=== PATIENT | male | born 1990 | race Caucasian/White ===

== ENCOUNTER 2016-11-19 18:31 | Emergency (ER) | payer OTHER ==
[~2016-11-19] VITALS: Ht 188 cm; Wt 90.0 kg
[2016-11-19 18:34] VITALS: BP 133/77; PULSE 78; RESP 18; O2SAT 99
--- NOTE | 2016-11-19 21:56 | ED.REPORT ---
HPI-Extremity Problem Upper Date of Service Nov 19, 2016 ED Provider: Abe Sweeney DO Pt is a 26 year old male who presents to the ED complaining of right shoulder pain onset 2 weeks. Pt c/o associated reduced range of motion, SOB, and dyspnea. The pt reported that he thinks he had a respiratory infection 2 weeks ago due to a cough. The following morning after the cough developed, the pt woke with right shoulder pain. He originally thought he had slept on it wrong, however he reports that the pain has gradually worsened since onset. Nursing Notes Stated Complaint: SEVERE PAIN IN RIGHT ARM Chief Complaint: Extremity Trauma Nursing Notes Reviewed: Yes Allergies: Coded Allergies: No Known Allergies (Verified Allergy, Unknown, 11/30/14) No Active Prescriptions or Reported Meds General Time Seen by MD: 21:11 Chief Complaint Shoulder injury right Hx Obtained From: Patient Arrived By: Walk-in Onset Occurred: More than a week ago... (2 weeks) Symptom Duration: Since onset Location: : Shoulder right Quality: Painful Severity: Current: Moderate Severity: Maximum: Moderate Recent Healthcare: Recent doctor visit Similar Sx Previous: No Past Medical History Past Medical History None reported - healthy Denies: Congestive heart failure, Diabetes mellitus, Hypertension Past Surgical History Denies Smoking History Current Every Day Smoker Social History Smokes marijuana Alcohol Use: "Social" Occupation Environmental Services Coordinator Ambulatory Status Independent Review of Systems Musculoskeletal: Reports: Extremity pain Complete sys rev & neg: except as marked. Respiratory: Reports: Dyspnea on exertion, Non-productive cough, Shortness of breath Physical Exam Initial Vital Signs Vital Signs (First) Date Time Temp Pulse Resp B/P Pulse Ox O2 Delivery O2 Flow Rate FiO2 11/19/16 18:34 36.7 78 18 133/77 99 Room Air Initial VS: Reviewed Head / Eyes: Atraumatic, Normocephalic, PERRL ENT: Mucous membranes moist, Conjunctiva normal, No scleral icterus Neck: Supple, Non-tender, Full range of motion Cardiovascular: Regular rate & rhythm, Heart sounds normal, Intact distal pulses Abdomen / GI: Soft, Non-tender Lower Extremities: Vascular intact, Neuro intact Skin: Warm, Dry, No cyanosis Neurologic: Alert, Oriented, Nonfocal Psychiatric: Mood/affect normal, Behavior normal General/Constitutional: Awake, Alert, Cooperative Respiratory / Chest: Atraumatic, Breath sounds = bilat Diminished breath sounds. Upper Extremity / MS: Neurologic intact, Vascular intact Extreme pain with range of motion of left arm. Supraspinatus tender insertion point. Pectoral region is tender. Interpretation & Diagnostics X-Ray Chest Interpretation Chest Xray Interpretation: Normal, no pneumothorax View: Portable, 1 view Interpretation / Wet Read by: Wet read ED physician Re-Eval/Medical Decision Med Decision/Clinical Course I recommended a d-dimer to rule out pulmonary emboli and upper extremity DVT. Antione initially agreed to this but evidently he left before this test was completed. He left before being discharged. Evidently he did tell his nurse that he will be back tomorrow for testing. Source of Hx: Old records Re-Evaluation/Progress : Time of Eval: 01:12 Re-Evaluation/Progress Note: Pt eloped without discharge instructions. Counseled Regarding: Diagnosis, Lab results, Need for follow-up, When/why to return to ED Discharge & Departure Shift Change Sign-Out Response to Therapy: Improved Impression: Primary Impression: Right arm pain Disposition: Home Discharge Condition All VS Reviewed: Yes Condition: Stable Referrals: Sherman Martell MD (PCP) [place] Attestation Portions of this note were transcribed by Yara Rodgers. I, Dr. Sweeney personally performed the history, physical exam and medical decision-making; I reviewed and confirmed the accuracy of the information in the transcribed note. Signed by: Jo Stephen, 11/19/16 and 23:50. copies to: Sherman Martell MD, Todd P DO Nov 19, 2016 21:56 Yara Camacho Nov 19, 2016 22:52
[2016-11-19] MEDS ORDERED: _oxyCODONE/APAP 5-325 mg Tablet PO PRN (22:05)
[2016-11-19] MEDS ORDERED: oxyCODONE-Acetamin 5-325 mg Tablet PO ONE (22:05)
[2016-11-19] MEDS ORDERED: HYDROcodone-APAP 5-325 mg Tablet PO ONE (22:40)
[2016-11-19] MEDS ORDERED: _HYDROcodone/APAP 5-325 mg Tablet PO PRN (22:40)
--- NOTE | 2016-11-20 08:58 | DRSVH ---
PROCEDURE: X-RAY CHEST, TWO VIEWS ([id number]) INDICATIONS: chest wall pain TECHNIQUE: 2 views of the chest were acquired. COMPARISON: [facility], CR, XR CHEST 1VW, 11/04/2016, 19:44. FINDINGS: Surgical changes and devices: None. Lungs and pleura: No pleural effusions or pneumothorax. Lungs are clear. Mediastinum: Mediastinal contours are normal. Heart size is normal. Bones and chest wall: No suspicious bony abnormalities. Soft tissues appear unremarkable. IMPRESSION: No acute cardiopulmonary disease. Dictated by: Andre Lara [facility] Interpreted: Nathalia Novak MD on 11/20/2016 at 8:56 Transcribed by: NUBIA on 11/20/2016 at 8:57 Approved by: Nathalia Novak M.D. on 11/20/2016 at 11:26
== END 2016-11-19 23:07 | disposition home or self-care (01) ==
LOC: SED 18:31
DX: M79.601 Pain in right arm (principal); F17.200 Nicotine dependence, unspecified, uncomplicated
CPT/HCPCS: 71020; 96372; 99284; J1885

== ENCOUNTER 2016-11-20 10:46 | Emergency (ER) | payer OTHER ==
[~2016-11-20] VITALS: Ht 188 cm; Wt 90.0 kg
[2016-11-20 11:18] VITALS: BP 125/79; PULSE 58; RESP 14; O2SAT 97
[2016-11-20 12:09] LABS: BASOPHILS % (AUTO) 0.2 % (0-3); EOSINOPHILS % (AUTO) 4.4 % (0-5); MONOCYTES % (AUTO) 10.6 % (4-12); Mean Corpuscular Hemoglobin 29.9 pg (27.0-35.0); Mean Corpuscular Volume 91.2 fL (81-100); NEUTROPHILS % (AUTO) 55.7 % (40-74); Platelet Count 268 bil/L (150-400)
--- NOTE | 2016-11-20 13:34 | ED.REPORT ---
HPI-Extremity Problem Upper Date of Service Nov 20, 2016 ED Provider: Doug Jensen PA-C Antione is otherwise healthy 26-year-old male presenting to emergency Department for right shoulder pain. Seen this department last night, departed prior to being tested for pulmonary embolus due to a family issue. Patient returns today to be tested for PE. Admits history of cough over the last 2 weeks, improving over the last 3 days. Also admits Shortness of breath, tingling in his right hand. denies fever, chills, trauma. Nursing Notes Stated Complaint: BLOOD CLOT TEST Chief Complaint: Respiratory Complaints Nursing Notes Reviewed: Yes Allergies: Coded Allergies: No Known Allergies (Verified Allergy, Unknown, 11/20/16) No Active Prescriptions or Reported Meds General Time Seen by MD: 13:16 Chief Complaint Shoulder injury right Past Medical History Past Medical History None reported - healthy Past Surgical History Denies Smoking History Current Every Day Smoker Social History Smokes marijuana Alcohol Use: "Social" Occupation Rn Intern Ambulatory Status Independent Review of Systems Review of Systems Note: Negative unless stated otherwise in history of present illness Physical Exam General: Well appearing, well developed, well nourished, no acute distress. Right shoulder: Normal to inspection, pain with range of motion. Tender over pectoral muscle. Right arm: Radial pulses 2+, neurovascularly intact. Adduction of thumb, pincher grasp with fifth finger intact, crosses his second and third fingers. Head: Atraumatic, normocephalic. Eyes: No scleral icterus or injection. No discharge. Vision grossly intact. ENT: Voice clear, hearing grossly intact. Respiratory: Regular rate and rhythm. Breath sounds present, clear to auscultation and equal bilaterally. No respiratory distress. No increased work of breathing, speaks in complete sentences. Cardiovascular: Regular rate and rhythm, without murmur, gallop or rub. No pedal edema. Skin: Warm and dry. Neurological: Grossly nonfocal. Psychological: Alert and oriented. Speech appropriate, linear and logical. Behavior appropriate. Initial Vital Signs Vital Signs (First) Date Time Temp Pulse Resp B/P Pulse Ox O2 Delivery O2 Flow Rate FiO2 11/20/16 11:18 36.2 58 14 125/79 97 Room Air Normal Interpretation & Diagnostics Lab Results Interpretation Result Diagram: 11/20/16 1159 11/20/16 1159 Test 6/21/17 11:59 White Blood Count 10.8th/mm3 (3.8-10.1) Red Blood Count 4.55mil/mm3 (4.40-5.80) Hemoglobin 13.6g/dL (13.8-17.2) Hematocrit 41.5% (41.0-50.0) Mean Corpuscular Volume 91.2fL (81-100) Mean Corpuscular Hemoglobin 29.9pg (27.0-35.0) Mean Corpuscular Hemoglobin Concent 32.8% (32.0-37.0) Red Cell Distribution Width 12.2% (12.3-15.4) Platelet Count 268bil/L (150-400) Neutrophils (%) (Auto) 55.7% (40-74) Lymphocytes (%) (Auto) 28.9% (14-46) Monocytes (%) (Auto) 10.6% (4-12) Eosinophils (%) (Auto) 4.4% (0-5) Basophils (%) (Auto) 0.2% (0-3) D-Dimer < 0.50mg/L FEU (<0.50) Sodium Level 143mEq/L (134-144) Potassium Level 4.7mEq/L (3.5-5.2) Chloride Level 103mEq/L (97-108) Carbon Dioxide Level 27mmol/L (18-29) Blood Urea Nitrogen 18mg/dL (6-20) Creatinine 0.90mg/dL (0.76-1.27) Estimat Glomerular Filtration Rate 108mL/min (>59) Glucose Level 70mg/dL (60-99) Calcium Level 9.5mg/dL (8.5-10.1) Total Bilirubin 0.2mg/dL (0.0-1.2) Aspartate Amino Transf (AST/SGOT) 21U/L (0-50) Alanine Aminotransferase (ALT/SGPT) 13U/L (0-44) Alkaline Phosphatase 123U/L (25-150) Total Protein 7.6g/dL (6.4-8.4) Albumin 4.5g/dL (3.4-5.0) Hold Santiago Top Tube Received (Received) Re-Eval/Medical Decision Med Decision/Clinical Course Otherwise healthy 26-year-old male with 2 week history of right shoulder pain associated with cough and dyspnea. Seen in this department yesterday, departed prior to ruling out PE. Returns to have d-dimer performed. Physical examination reveals pain with range of motion, tenderness in the right shoulder near the insertion of the pectoral and clear lung sounds, clinically evident cough. Lung sounds are clear and equal bilaterally, vitals normal. D-dimer is negative. CMP is normal, CBC reveals mild leukocytosis. Chest x-ray performed yesterday is normal. This point I do not believe this is caused by a PE, pneumonia, pneumothorax. I believe this is musculoskeletal pain, as it easily reproduced with palpation or range of motion. Advised rest, [id number] analgesia. Advised regarding primary care follow-up, provided emergency return precautions. Patient verbalized understanding of, and consent to, the plan. Discharge & Departure Impression: Primary Impression: Right arm pain Disposition: Home Discharge Condition All VS Reviewed: Yes Condition: Stable Additional Instructions: We completed the evaluation of your right shoulder pain in the emergency department today by performing a a test to rule out a blood clot in her lungs. This was reassuring, and we did not suspect a blood clot at this time. Other dangerous causes such as pneumonia, collapsed lung were ruled out last night. This is most likely a musculoskeletal pain, which should improve with rest. The pain is best treated with 500 mg of naproxen (Aleve) every 12 hours, or 1000 mg of acetaminophen (Tylenol) every 6 hours. These drugs can be taken at the same time for more severe pain. Follow-up with Dr. Martell if this is not significantly improved in a week or 2. Return to emergency department for any new or worsening symptoms including increasing pain, shortness of breath, lightheadedness, coughing up blood. Referrals: Sherman Martell MD (PCP) EDSupervising Provider for APC: Sherman Andrade MD copies to: Sherman Martell MD, Seth PA-C Nov 20, 2016 13:34
[2016-11-20 13:59] VITALS: BP 110/73; PULSE 57; RESP 14; O2SAT 98
== END 2016-11-20 13:59 | disposition home or self-care (01) ==
LOC: SED 10:46
DX: M25.511 Pain in right shoulder (principal); R05 Cough; R06.02 Shortness of breath; R20.2 Paresthesia of skin; F17.200 Nicotine dependence, unspecified, uncomplicated